=== PATIENT | male | born 1960 | race Caucasian/White ===

== ENCOUNTER 2021-02-22 20:34 | Inpatient (IN) ==
[2021-02-22] MEDS ORDERED: Ondansetron 4 MG/2 ML VIAL IVP PRN (22:37)
[2021-02-22] MEDS ORDERED: Naloxone 0.4 MG/ML INJ IVP PRN (22:37)
[2021-02-22] MEDS ORDERED: Ipratropium/Albuterol Neb 3 ML IH PRN (23:44)
[2021-02-23] MEDS: 0.9 % Sodium Chloride 1,000 ML IVC SCH ×2 (00:33→12:02)
[2021-02-23] MEDS: Cefepime HCl 2,000 MG in Water for inj. (sterile) 20 ML IVP SCH ×3 (00:34→15:49)
[2021-02-23 00:37] LABS: Adenovirus Not Detected (Not Detect); Bordetella Pertussis Not Detected (Not Detect); Chlamydophila pneumoniae Not Detected (Not Detect); Coronavirus 229E Not Detected (Not Detect); Coronavirus HKU1 Not Detected (Not Detect); Coronavirus NL63 Not Detected (Not Detect); Coronavirus OC43 Not Detected (Not Detect); Human Metapneumovirus Not Detected (Not Detect); Human Rhinovirus/Enterovirus Not Detected (Not Detect); Influenza A Subtype 2009 H1 Not Detected (Not Detect); Influenza B Not Detected (Not Detect); Mycoplasma pneumoniae Not Detected (Not Detect); Parainfluenza Virus 1 Not Detected (Not Detect); Parainfluenza Virus 2 Not Detected (Not Detect); Parainfluenza Virus 3 DETECTED (Not Detect); Parainfluenza Virus 4 Not Detected (Not Detect); Respiratory Syncytial Virus Not Detected (Not Detect); SARS-CoV-2 Not Detected (Not Detect)
[2021-02-23 01:38] LABS: Hematocrit 42.2 % (37.5-50.1); Hemoglobin 15.3 g/dL (12.9-16.9); Immature Platelets 5.4 % (1.1-6.1); Lymphocytes # 0.2 K/mcL (0.6-4.6); Lymphocytes % 58.6 %; Mean Corpuscular HGB Conc 36.3 g/dL (31.6-35.5); Mean Corpuscular Hemoglobin 32.7 pg (28.0-33.3); Mean Corpuscular Volume 90.2 fL (83.0-100.0); Mean Platelet Volume 10.8 fL (9.4-12.4); Monocytes % 10.3 %; Neutrophils # 0.1 K/mcL (1.6-8.9); Red Blood Count 4.68 M/mcL (4.19-5.50); Red Cell Distribution Width 15.9 % (11.5-14.5); Segmented Neutrophils % 31.1 %
[2021-02-23 01:42] LABS: INR 1.2; Prothrombin Time 13.8 Seconds (9.4-12.1)
[2021-02-23 01:46] LABS: Platelet Count 27 K/mcL (140-400); White Blood Count 0.3 K/mcL (4.3-11.1)
[2021-02-23] MEDS ORDERED: Isovue-370 500 ML BOTTLE IVP ONE (01:48)
[2021-02-23 01:58] LABS: Alanine Aminotransferase 95 Units/L (7-52); Albumin 3.3 g/dL (3.5-5.7); Albumin/Globulin Ratio 1.2 (1.1-2.2); Alkaline Phosphatase 102 Units/L (34-104); Aspartate Amino Transferase 32 Units/L (13-39); BUN/Creatinine Ratio 36 (6-26); Bilirubin,Total 1.8 mg/dL (0.3-1.0); Blood Urea Nitrogen 22 mg/dL (8-23); Calcium 8.5 mg/dL (8.6-10.3); Carbon Dioxide 22 mEq/L (23-29); Chloride 100 mEq/L (98-107); Globulin 2.7 g/dL (2.4-3.5); Glucose 84 mg/dL (70-105); Magnesium 1.5 mg/dL (1.6-2.6); Osmolality,Calculated 277 (280-300); Potassium 3.7 mEq/L (3.5-5.1); Sodium 132 mEq/L (136-145); eGFR For African Americans > 60 (> 60); eGFR For Non-African Americans > 60 (> 60)
[2021-02-23 02:01] LABS: Macrocytosis Present (Not Present); Platelet Estimate Marked Decrease (Normal)
[2021-02-23] MEDS: Acetaminophen 325 MG TABLET PO PRN (04:19)
[2021-02-23] MEDS ORDERED: *HR* Enoxaparin 40 MG/0.4 ML SYRINGE SQ SCH (09:00)
[2021-02-23] MEDS: Pantoprazole 40 MG VIAL IVP SCH (09:04)
[2021-02-23] MEDS: Famotidine 20 MG TABLET PO SCH (21:05)
[2021-02-23] MEDS: Nystatin SUSP 5 ML UD.LIQ PO SCH (21:06)
[2021-02-23] MEDS: dexAMETHasone 4 MG TABLET PO SCH (21:06)
[2021-02-24] MEDS: Cefepime HCl 2,000 MG in Water for inj. (sterile) 20 ML IVP SCH ×3 (00:24→16:30)
[2021-02-24] MEDS: Acetaminophen 325 MG TABLET PO PRN ×3 (00:24→13:37)
[2021-02-24 01:08] LABS: Mean Corpuscular HGB Conc 35.2 g/dL (31.6-35.5); Mean Corpuscular Hemoglobin 32.2 pg (28.0-33.3); Mean Corpuscular Volume 91.4 fL (83.0-100.0)
[2021-02-24 01:10] LABS: Basophils % 3.1 %; Hematocrit 34.9 % (37.5-50.1); Hemoglobin 12.3 g/dL (12.9-16.9); Immature Platelets 7.4 % (1.1-6.1); Lymphocytes # 0.1 K/mcL (0.6-4.6); Lymphocytes % 31.3 %; Mean Platelet Volume 10.8 fL (9.4-12.4); Monocytes % 9.4 %; Neutrophils # 0.2 K/mcL (1.6-8.9); Red Blood Count 3.82 M/mcL (4.19-5.50); Red Cell Distribution Width 15.4 % (11.5-14.5); Segmented Neutrophils % 56.2 %
[2021-02-24 01:28] LABS: BUN/Creatinine Ratio 36 (6-26); Blood Urea Nitrogen 18 mg/dL (8-23); Calcium 7.7 mg/dL (8.6-10.3); Carbon Dioxide 21 mEq/L (23-29); Chloride 103 mEq/L (98-107); Glucose 85 mg/dL (70-105); Osmolality,Calculated 273 (280-300); Potassium 3.9 mEq/L (3.5-5.1); Sodium 131 mEq/L (136-145); eGFR For African Americans > 60 (> 60); eGFR For Non-African Americans > 60 (> 60)
[2021-02-24 01:39] LABS: Platelet Count 16 K/mcL (140-400); White Blood Count 0.3 K/mcL (4.3-11.1)
[2021-02-24 01:41] LABS: Platelet Estimate Marked Decrease (Normal)
[2021-02-24] MEDS: Loratadine 10 MG TABLET PO SCH (07:40)
[2021-02-24] MEDS: dexAMETHasone 4 MG TABLET PO SCH ×2 (07:40→19:58)
[2021-02-24] MEDS: Famotidine 20 MG TABLET PO SCH ×3 (07:40→19:58)
[2021-02-24] MEDS: Nystatin SUSP 5 ML UD.LIQ PO SCH ×4 (07:41→19:58)
[2021-02-24] MEDS: Pantoprazole 40 MG VIAL IVP SCH (07:43)
[2021-02-24] MEDS: Magic Mouthwash 10 ML UD Cup PO PRN ×2 (07:43→13:38)
[2021-02-24 08:40] LABS: Red Blood Count 3.81 M/mcL (4.19-5.50); Red Cell Distribution Width 15.5 % (11.5-14.5)
[2021-02-24 08:41] LABS: Hematocrit 34.8 % (37.5-50.1); Hemoglobin 12.2 g/dL (12.9-16.9); Immature Platelets 9.7 % (1.1-6.1); Mean Corpuscular HGB Conc 35.1 g/dL (31.6-35.5); Mean Corpuscular Volume 91.3 fL (83.0-100.0); Mean Platelet Volume 11.6 fL (9.4-12.4)
[2021-02-24 08:44] LABS: White Blood Count 0.6 K/mcL (4.3-11.1)
[2021-02-24] MEDS: Nicotine 21 MG PATCH.TD24 TD SCH (12:35)
[2021-02-24] MEDS: Vancomycin 1,500 MG/265 ML IV.SOLN IVPB SCH (13:38)
[2021-02-24] MEDS ORDERED: Saline Nasal Spray 44 ML BOTTLE NS PRN (14:03)
[2021-02-24 17:08] LABS: Hematocrit 37.7 % (37.5-50.1); Hemoglobin 13.3 g/dL (12.9-16.9); Immature Platelets 12.1 % (1.1-6.1); Mean Corpuscular HGB Conc 35.3 g/dL (31.6-35.5); Mean Corpuscular Hemoglobin 32.7 pg (28.0-33.3); Mean Corpuscular Volume 92.6 fL (83.0-100.0); Mean Platelet Volume 13.1 fL (9.4-12.4); Red Blood Count 4.07 M/mcL (4.19-5.50); Red Cell Distribution Width 15.8 % (11.5-14.5); White Blood Count 1.2 K/mcL (4.3-11.1)
[2021-02-25] MEDS: Cefepime HCl 2,000 MG in Water for inj. (sterile) 20 ML IVP SCH ×2 (00:31→08:05)
[2021-02-25] MEDS: Vancomycin 1,500 MG/265 ML IV.SOLN IVPB SCH (00:31)
[2021-02-25] MEDS: Acetaminophen 325 MG TABLET PO PRN (00:40)
[2021-02-25 05:17] LABS: Hematocrit 35.1 % (37.5-50.1); Hemoglobin 12.2 g/dL (12.9-16.9); Lymphocytes # 0.2 K/mcL (0.6-4.6); Mean Corpuscular HGB Conc 34.8 g/dL (31.6-35.5); Mean Corpuscular Hemoglobin 31.7 pg (28.0-33.3); Mean Corpuscular Volume 91.2 fL (83.0-100.0); Mean Platelet Volume 11.7 fL (9.4-12.4); Monocytes # 0.1 K/mcL (0.0-1.3); Red Blood Count 3.85 M/mcL (4.19-5.50); Red Cell Distribution Width 15.1 % (11.5-14.5); White Blood Count 2.3 K/mcL (4.3-11.1)
[2021-02-25 05:22] LABS: Platelet Count 19 K/mcL (140-400)
[2021-02-25 05:35] LABS: Alanine Aminotransferase 52 Units/L (7-52); Albumin 2.8 g/dL (3.5-5.7); Albumin/Globulin Ratio 0.9 (1.1-2.2); Alkaline Phosphatase 87 Units/L (34-104); Aspartate Amino Transferase 24 Units/L (13-39); BUN/Creatinine Ratio 31 (6-26); Bilirubin,Total 0.9 mg/dL (0.3-1.0); Blood Urea Nitrogen 16 mg/dL (8-23); Calcium 8.2 mg/dL (8.6-10.3); Carbon Dioxide 23 mEq/L (23-29); Chloride 102 mEq/L (98-107); Glucose 162 mg/dL (70-105); Magnesium 1.6 mg/dL (1.6-2.6); Osmolality,Calculated 277 (280-300); Potassium 3.7 mEq/L (3.5-5.1); Sodium 131 mEq/L (136-145); Total Protein 5.8 g/dL (6.4-8.9); eGFR For African Americans > 60 (> 60); eGFR For Non-African Americans > 60 (> 60)
[2021-02-25 06:12] LABS: Platelet Estimate Marked Decrease (Normal)
[2021-02-25 07:31] VITALS: BP 146/88
[2021-02-25] MEDS: Pantoprazole 40 MG VIAL IVP SCH (08:06)
[2021-02-25] MEDS: Loratadine 10 MG TABLET PO SCH (08:06)
[2021-02-25] MEDS: dexAMETHasone 4 MG TABLET PO SCH (08:06)
[2021-02-25] MEDS: Nicotine 21 MG PATCH.TD24 TD SCH (08:06)
[2021-02-25] MEDS: Famotidine 20 MG TABLET PO SCH (08:06)
[2021-02-25] MEDS: Nystatin SUSP 5 ML UD.LIQ PO SCH (08:07)
== END 2021-02-25 10:30 | disposition home or self-care (01) | DRG 720 ==
LOC: 3NENU → SUATTDRO 22:16
PROVIDERS: ADMIT Student in an Organized Health Care Education/Training Program; ATTEND Family Medicine

== ENCOUNTER 2021-03-29 16:35 | Inpatient (IN) ==
[2021-03-29] MEDS ORDERED: Ondansetron 4 MG/2 ML VIAL IVP PRN (21:48)
[2021-03-29] MEDS ORDERED: Naloxone 0.4 MG/ML INJ IVP PRN (21:48)
[2021-03-29] MEDS ORDERED: *HR* Promethazine 25 MG/ML VIAL IM PRN (21:48)
[2021-03-29] MEDS: Ringers Solution, Lactated 1,000 ML IVC SCH (22:07)
[2021-03-29] MEDS: Melatonin 3 MG TABLET PO PRN (22:11)
[2021-03-30] MEDS ORDERED: Vancomycin 1,500 MG/265 ML IV.SOLN IVPB ONE
[2021-03-30] MEDS: Piperacillin/Tazobactam 3.375 GM in 0.9 % Sodium Chloride Mini Bag 100 ML IVPB SCH ×4 (00:28→23:21)
[2021-03-30] MEDS: Saliva Stimulant 44.3ml BOTTLE PO SCH ×5 (00:36→21:31)
[2021-03-30 02:01] LABS: Basophils # 0.1 K/mcL (0.0-0.2); Basophils % 0.4 %; Hematocrit 27.1 % (37.5-50.1); Hemoglobin 9.1 g/dL (12.9-16.9); Immature Granulocytes % 6.8 % (0-4); Lymphocytes # 0.9 K/mcL (0.6-4.6); Lymphocytes % 6.6 %; Mean Corpuscular HGB Conc 33.6 g/dL (31.6-35.5); Mean Corpuscular Volume 95.4 fL (83.0-100.0); Mean Platelet Volume 10.4 fL (9.4-12.4); Monocytes # 0.8 K/mcL (0.0-1.3); Monocytes % 5.7 %; Neutrophils # 11.5 K/mcL (1.6-8.9); Nucleated Red Blood Cells 0.4 /100 WBC (0); Platelet Count 281 K/mcL (140-400); Red Blood Count 2.84 M/mcL (4.19-5.50); Red Cell Distribution Width 16.7 % (11.5-14.5); Segmented Neutrophils % 80.5 %; White Blood Count 14.3 K/mcL (4.3-11.1)
[2021-03-30 02:07] LABS: INR 1.4; Prothrombin Time 16.2 Seconds (9.4-12.1)
[2021-03-30 02:20] LABS: Alanine Aminotransferase 45 Units/L (7-52); Albumin 2.1 g/dL (3.5-5.7); Albumin/Globulin Ratio 0.7 (1.1-2.2); Alkaline Phosphatase 160 Units/L (34-104); Aspartate Amino Transferase 41 Units/L (13-39); BUN/Creatinine Ratio 43 (6-26); Bilirubin,Total 0.5 mg/dL (0.3-1.0); Blood Urea Nitrogen 17 mg/dL (8-23); Calcium 7.6 mg/dL (8.6-10.3); Carbon Dioxide 26 mEq/L (23-29); Chloride 98 mEq/L (98-107); Chol/HDL Ratio 8.9 (0-4.9); Cholesterol 124 mg/dL (< 200); Globulin 3.1 g/dL (2.4-3.5); Glucose 211 mg/dL (70-105); HDL Cholesterol 14 mg/dL (40-59); LDL Cholesterol,Calculated 80 mg/dL (< 100); Magnesium 2.2 mg/dL (1.6-2.6); Osmolality,Calculated 282 (280-300); Potassium 3.4 mEq/L (3.5-5.1); Sodium 132 mEq/L (136-145); Total Protein 5.2 g/dL (6.4-8.9); Triglycerides 152 mg/dL (< 150); eGFR For African Americans > 60 (> 60); eGFR For Non-African Americans > 60 (> 60)
[2021-03-30 02:35] LABS: Polychromasia 1+ (Not Present)
[2021-03-30 02:36] LABS: Platelet Estimate Normal (Normal)
[2021-03-30] MEDS: *HR* Heparin 5,000 UNIT/ML VIAL SQ SCH ×3 (08:40→23:18)
[2021-03-30] MEDS: Ringers Solution, Lactated 1,000 ML IVC SCH (08:48)
[2021-03-30] MEDS ORDERED: *HR* Propofol 200 MG/20 ML VIAL IVP ONE (10:15)
[2021-03-30] MEDS ORDERED: Ondansetron 4 MG/2 ML VIAL ONE (10:17)
[2021-03-30] MEDS ORDERED: Lidocaine -MPF 2% 5 ML VIAL ONE (10:17)
[2021-03-30] MEDS ORDERED: *HR* Succinylcholine 200 MG/10 ML VIAL IVP ONE (10:23)
[2021-03-30] MEDS ORDERED: Lidocaine -MPF 4% 5 ML AMPUL ONE (10:35)
[2021-03-30] MEDS ORDERED: *HR* EPINEPHrine 1 MG/10 ML SYRINGE INTRATRACH PRN (11:01)
[2021-03-30] MEDS ORDERED: *HR* EPINEPHrine 1 MG/10 ML SYRINGE ONE (11:03)
[2021-03-30 12:35] LABS: Appearance of Body Fluid Clear (Clear); Volume of Body Fluid 21 mL
[2021-03-30] MEDS: Famotidine 20 MG TABLET PO SCH ×2 (12:45→23:19)
[2021-03-30] MEDS: Ipratropium/Albuterol Neb 3 ML IH SCH ×2 (15:58→22:42)
[2021-03-31 03:44] LABS: Hematocrit 27.1 % (37.5-50.1); Hemoglobin 9.1 g/dL (12.9-16.9); Mean Corpuscular HGB Conc 33.6 g/dL (31.6-35.5); Mean Corpuscular Hemoglobin 32.2 pg (28.0-33.3); Mean Corpuscular Volume 95.8 fL (83.0-100.0); Mean Platelet Volume 10.3 fL (9.4-12.4); Nucleated Red Blood Cells 0.4 /100 WBC (0); Platelet Count 274 K/mcL (140-400); Red Blood Count 2.83 M/mcL (4.19-5.50); Red Cell Distribution Width 16.6 % (11.5-14.5); White Blood Count 14.4 K/mcL (4.3-11.1)
[2021-03-31 04:01] LABS: Magnesium 1.8 mg/dL (1.6-2.6); Phosphorous 2.4 mg/dL (2.7-4.5)
[2021-03-31 04:02] LABS: Alanine Aminotransferase 67 Units/L (7-52); Albumin 2.2 g/dL (3.5-5.7); Albumin/Globulin Ratio 0.8 (1.1-2.2); Alkaline Phosphatase 198 Units/L (34-104); Aspartate Amino Transferase 48 Units/L (13-39); BUN/Creatinine Ratio 23 (6-26); Bilirubin,Total 0.5 mg/dL (0.3-1.0); Blood Urea Nitrogen 10 mg/dL (8-23); Calcium 7.4 mg/dL (8.6-10.3); Carbon Dioxide 24 mEq/L (23-29); Chloride 101 mEq/L (98-107); Globulin 2.9 g/dL (2.4-3.5); Glucose 311 mg/dL (70-105); Osmolality,Calculated 285 (280-300); Sodium 132 mEq/L (136-145); Total Protein 5.1 g/dL (6.4-8.9); eGFR For African Americans > 60 (> 60); eGFR For Non-African Americans > 60 (> 60)
[2021-03-31] MEDS: Ipratropium/Albuterol Neb 3 ML IH SCH ×4 (04:03→22:57)
[2021-03-31 04:36] LABS: Lymphocytes # 0.9 K/mcL (0.6-4.6); Monocytes # 0.9 K/mcL (0.0-1.3); Neutrophils # 12.4 K/mcL (1.6-8.9); Platelet Estimate Normal (Normal)
[2021-03-31] MEDS: *HR* Heparin 5,000 UNIT/ML VIAL SQ SCH ×3 (06:29→21:20)
[2021-03-31] MEDS: Saliva Stimulant 44.3ml BOTTLE PO SCH ×4 (08:17→21:26)
[2021-03-31] MEDS: Piperacillin/Tazobactam 3.375 GM in 0.9 % Sodium Chloride Mini Bag 100 ML IVPB SCH ×3 (08:17→23:44)
[2021-03-31] MEDS: Famotidine 20 MG TABLET PO SCH ×2 (08:48→21:20)
[2021-03-31] MEDS ORDERED: dexAMETHasone 4 MG TABLET PO SCH (09:00)
[2021-03-31] MEDS: Melatonin 3 MG TABLET PO PRN (21:20)
[2021-04-01 03:36] LABS: Hematocrit 31.6 % (37.5-50.1); Hemoglobin 10.4 g/dL (12.9-16.9); Mean Corpuscular HGB Conc 32.9 g/dL (31.6-35.5); Mean Corpuscular Hemoglobin 31.6 pg (28.0-33.3); Mean Platelet Volume 9.9 fL (9.4-12.4); Platelet Count 329 K/mcL (140-400); Red Blood Count 3.29 M/mcL (4.19-5.50); Red Cell Distribution Width 16.9 % (11.5-14.5); White Blood Count 19.4 K/mcL (4.3-11.1)
[2021-04-01 03:57] LABS: BUN/Creatinine Ratio 17 (6-26); Blood Urea Nitrogen 8 mg/dL (8-23); Calcium 8.3 mg/dL (8.6-10.3); Carbon Dioxide 25 mEq/L (23-29); Chloride 99 mEq/L (98-107); Glucose 130 mg/dL (70-105); Osmolality,Calculated 276 (280-300); Potassium 3.9 mEq/L (3.5-5.1); Sodium 133 mEq/L (136-145); eGFR For African Americans > 60 (> 60); eGFR For Non-African Americans > 60 (> 60)
[2021-04-01] MEDS: Ipratropium/Albuterol Neb 3 ML IH SCH ×4 (04:00→22:16)
[2021-04-01] MEDS: *HR* Heparin 5,000 UNIT/ML VIAL SQ SCH ×2 (05:23→20:44)
[2021-04-01] MEDS: Famotidine 20 MG TABLET PO SCH ×2 (08:16→20:42)
[2021-04-01] MEDS: Piperacillin/Tazobactam 3.375 GM in 0.9 % Sodium Chloride Mini Bag 100 ML IVPB SCH (08:17)
[2021-04-01] MEDS: Saliva Stimulant 44.3ml BOTTLE PO SCH (08:18)
[2021-04-01] MEDS ORDERED: dexAMETHasone 4 MG TABLET PO SCH (09:00)
[2021-04-01] MEDS ORDERED: *HR* Rocuronium Bromide 50 MG/5 ML VIAL ONE ×3 (11:08→15:09)
[2021-04-01] MEDS ORDERED: Ondansetron 4 MG/2 ML VIAL ONE (11:08)
[2021-04-01] MEDS ORDERED: *HR* FentaNYL (PF) 100 MCG/2 ML VIAL ONE ×3 (11:08→14:46)
[2021-04-01] MEDS ORDERED: *HR* Succinylcholine 200 MG/10 ML VIAL IVP ONE ×2 (11:08→13:22)
[2021-04-01] MEDS ORDERED: Lidocaine HCL 4 ML Topical Solution (Laryng-O-Jet Kit Sterile Pak) TP ONE ×2 (11:08→13:22)
[2021-04-01] MEDS ORDERED: Lidocaine -MPF 2% 2 ML VIAL ONE ×2 (11:08→13:22)
[2021-04-01] MEDS ORDERED: *HR* Propofol 200 MG/20 ML VIAL IVP ONE ×2 (11:09→13:23)
[2021-04-01] MEDS ORDERED: *HR* Midazolam HCl 2 MG/2 ML VIAL ONE ×2 (11:09→13:23)
[2021-04-01] MEDS ORDERED: *HR* Phenylephrine 10 MG/ML VIAL ONE (14:18)
[2021-04-01] MEDS ORDERED: Melatonin 3 MG TABLET PO PRN (16:37)
[2021-04-01] MEDS ORDERED: Naloxone 0.4 MG/ML INJ IVP PRN (16:37)
[2021-04-01] MEDS ORDERED: *HR* HYDROcodone/Acet 5/325 mg TABLET PO PRN (16:37)
[2021-04-01] MEDS ORDERED: Ondansetron 4 MG/2 ML VIAL IVP PRN (16:37)
[2021-04-01] MEDS: Ketorolac 15 MG/ML VIAL IVP SCH ×2 (17:21→23:28)
[2021-04-01] MEDS: 0.9 % Sodium Chloride 1,000 ML IVC SCH (17:23)
[2021-04-01] MEDS: Gabapentin 300 MG CAPSULE PO SCH (20:43)
[2021-04-01] MEDS: Sennosides/Docusate Sodium TABLET PO SCH (20:43)
[2021-04-02] MEDS: Ipratropium/Albuterol Neb 3 ML IH SCH ×4 (03:49→21:59)
[2021-04-02] MEDS: Ketorolac 15 MG/ML VIAL IVP SCH ×4 (05:28→23:05)
[2021-04-02] MEDS: *HR* Heparin 5,000 UNIT/ML VIAL SQ SCH ×3 (05:29→20:27)
[2021-04-02] MEDS: Gabapentin 300 MG CAPSULE PO SCH ×3 (07:59→20:27)
[2021-04-02] MEDS: dexAMETHasone 4 MG TABLET PO SCH (07:59)
[2021-04-02] MEDS: Famotidine 20 MG TABLET PO SCH ×2 (07:59→20:27)
[2021-04-02] MEDS: Sennosides/Docusate Sodium TABLET PO SCH ×2 (07:59→20:27)
[2021-04-02] MEDS: 0.9 % Sodium Chloride 1,000 ML IVC SCH (09:32)
[2021-04-02 12:44] LABS: Basophils % 0.2 %; Hematocrit 31.9 % (37.5-50.1); Hemoglobin 10.8 g/dL (12.9-16.9); Immature Granulocytes % 5.5 % (0-4); Lymphocytes # 0.4 K/mcL (0.6-4.6); Mean Corpuscular HGB Conc 33.9 g/dL (31.6-35.5); Mean Corpuscular Hemoglobin 32.5 pg (28.0-33.3); Mean Corpuscular Volume 96.1 fL (83.0-100.0); Mean Platelet Volume 10.1 fL (9.4-12.4); Monocytes # 0.4 K/mcL (0.0-1.3); Nucleated Red Blood Cells 0.1 /100 WBC (0); Platelet Count 287 K/mcL (140-400); Red Blood Count 3.32 M/mcL (4.19-5.50); Red Cell Distribution Width 17.2 % (11.5-14.5); Segmented Neutrophils % 90.3 %
[2021-04-02 13:03] LABS: BUN/Creatinine Ratio 26 (6-26); Blood Urea Nitrogen 14 mg/dL (8-23); Calcium 7.9 mg/dL (8.6-10.3); Carbon Dioxide 25 mEq/L (23-29); Chloride 96 mEq/L (98-107); Glucose 275 mg/dL (70-105); Osmolality,Calculated 278 (280-300); Potassium 3.8 mEq/L (3.5-5.1); Sodium 129 mEq/L (136-145); eGFR For African Americans > 60 (> 60); eGFR For Non-African Americans > 60 (> 60)
[2021-04-02 13:35] LABS: Platelet Estimate Normal (Normal); Toxic Granulation Present (Not Present)
[2021-04-03] MEDS: 0.9 % Sodium Chloride 1,000 ML IVC SCH (01:26)
[2021-04-03] MEDS: Ipratropium/Albuterol Neb 3 ML IH SCH ×4 (03:53→22:39)
[2021-04-03] MEDS ORDERED: 0.9 % Sodium Chloride 250 ML ONE (04:21)
[2021-04-03 05:17] LABS: Basophils # 0.1 K/mcL (0.0-0.2); Basophils % 0.5 %; Hematocrit 29.7 % (37.5-50.1); Hemoglobin 9.3 g/dL (12.9-16.9); Immature Granulocytes % 8.3 % (0-4); Lymphocytes # 0.8 K/mcL (0.6-4.6); Lymphocytes % 4.9 %; Mean Corpuscular HGB Conc 31.3 g/dL (31.6-35.5); Mean Corpuscular Hemoglobin 31.2 pg (28.0-33.3); Mean Corpuscular Volume 99.7 fL (83.0-100.0); Mean Platelet Volume 10.2 fL (9.4-12.4); Monocytes # 0.5 K/mcL (0.0-1.3); Monocytes % 3.2 %; Neutrophils # 12.8 K/mcL (1.6-8.9); Nucleated Red Blood Cells 0.2 /100 WBC (0); Platelet Count 247 K/mcL (140-400); Red Blood Count 2.98 M/mcL (4.19-5.50); Red Cell Distribution Width 17.5 % (11.5-14.5); Segmented Neutrophils % 83.1 %; White Blood Count 15.4 K/mcL (4.3-11.1)
[2021-04-03 05:38] LABS: Alanine Aminotransferase 31 Units/L (7-52); Albumin 2.2 g/dL (3.5-5.7); Albumin/Globulin Ratio 0.8 (1.1-2.2); Alkaline Phosphatase 167 Units/L (34-104); Aspartate Amino Transferase 11 Units/L (13-39); BUN/Creatinine Ratio 23 (6-26); Bilirubin,Total 0.3 mg/dL (0.3-1.0); Blood Urea Nitrogen 12 mg/dL (8-23); Calcium 7.5 mg/dL (8.6-10.3); Carbon Dioxide 25 mEq/L (23-29); Chloride 104 mEq/L (98-107); Globulin 2.7 g/dL (2.4-3.5); Glucose 450 mg/dL (70-105); Osmolality,Calculated 299 (280-300); Potassium 3.8 mEq/L (3.5-5.1); Sodium 135 mEq/L (136-145); Total Protein 4.9 g/dL (6.4-8.9); eGFR For African Americans > 60 (> 60); eGFR For Non-African Americans > 60 (> 60)
[2021-04-03] MEDS: *HR* Heparin 5,000 UNIT/ML VIAL SQ SCH ×3 (06:04→19:56)
[2021-04-03] MEDS: Ketorolac 15 MG/ML VIAL IVP SCH ×4 (06:10→23:17)
[2021-04-03] MEDS: Gabapentin 300 MG CAPSULE PO SCH ×3 (08:02→19:51)
[2021-04-03] MEDS: dexAMETHasone 4 MG TABLET PO SCH (08:02)
[2021-04-03] MEDS: Sennosides/Docusate Sodium TABLET PO SCH ×2 (08:02→19:52)
[2021-04-03] MEDS: Famotidine 20 MG TABLET PO SCH ×2 (08:02→19:51)
[2021-04-03] MEDS ORDERED: D5% in Water 1,000 ML IVC PRN (12:57)
[2021-04-03] MEDS ORDERED: *HR* Dextrose 50 % in Water (Vial) 50 ML VIAL IVP PRN (12:57)
[2021-04-03] MEDS ORDERED: Dextrose Gel 15 GM/37.5 ML TUBE PO PRN ×2 (12:57)
[2021-04-03] MEDS: Insulin LISPRO 300 UNITS/3 ML VIAL SUBQ SCH (16:20)
[2021-04-04 03:03] LABS: Basophils # 0.1 K/mcL (0.0-0.2); Basophils % 0.3 %; Hematocrit 28.8 % (37.5-50.1); Hemoglobin 9.3 g/dL (12.9-16.9); Immature Granulocytes % 6.3 % (0-4); Lymphocytes # 0.8 K/mcL (0.6-4.6); Mean Corpuscular HGB Conc 32.3 g/dL (31.6-35.5); Mean Corpuscular Hemoglobin 31.7 pg (28.0-33.3); Mean Corpuscular Volume 98.3 fL (83.0-100.0); Mean Platelet Volume 10.1 fL (9.4-12.4); Monocytes # 0.5 K/mcL (0.0-1.3); Monocytes % 2.6 %; Neutrophils # 17.5 K/mcL (1.6-8.9); Nucleated Red Blood Cells 0.4 /100 WBC (0); Platelet Count 251 K/mcL (140-400); Red Blood Count 2.93 M/mcL (4.19-5.50); Red Cell Distribution Width 17.9 % (11.5-14.5); Segmented Neutrophils % 86.8 %; White Blood Count 20.2 K/mcL (4.3-11.1)
[2021-04-04 03:25] LABS: BUN/Creatinine Ratio 31 (6-26); Blood Urea Nitrogen 12 mg/dL (8-23); Calcium 7.8 mg/dL (8.6-10.3); Carbon Dioxide 22 mEq/L (23-29); Chloride 105 mEq/L (98-107); Glucose 229 mg/dL (70-105); Osmolality,Calculated 285 (280-300); Potassium 4.1 mEq/L (3.5-5.1); Sodium 134 mEq/L (136-145); eGFR For African Americans > 60 (> 60); eGFR For Non-African Americans > 60 (> 60)
[2021-04-04 03:53] LABS: Anisocytosis 1+ (Not Present); Hypochromasia Present (Not Present); Platelet Estimate Normal (Normal); Polychromasia 1+ (Not Present)
[2021-04-04] MEDS: Ipratropium/Albuterol Neb 3 ML IH SCH ×4 (03:59→21:53)
[2021-04-04] MEDS: Ketorolac 15 MG/ML VIAL IVP SCH ×4 (05:20→23:46)
[2021-04-04] MEDS: *HR* Heparin 5,000 UNIT/ML VIAL SQ SCH ×3 (05:20→20:18)
[2021-04-04] MEDS: Sennosides/Docusate Sodium TABLET PO SCH ×2 (07:48→20:17)
[2021-04-04] MEDS: Famotidine 20 MG TABLET PO SCH ×2 (07:49→20:17)
[2021-04-04] MEDS: Gabapentin 300 MG CAPSULE PO SCH ×3 (07:49→20:15)
[2021-04-04] MEDS: dexAMETHasone 4 MG TABLET PO SCH (07:49)
[2021-04-04] MEDS: Insulin LISPRO 300 UNITS/3 ML VIAL SUBQ SCH ×3 (07:50→16:19)
[2021-04-05] MEDS: Ipratropium/Albuterol Neb 3 ML IH SCH ×4 (03:53→22:10)
[2021-04-05] MEDS: *HR* Heparin 5,000 UNIT/ML VIAL SQ SCH ×3 (05:12→21:40)
[2021-04-05] MEDS: Ketorolac 15 MG/ML VIAL IVP SCH ×3 (05:13→19:52)
[2021-04-05 06:24] LABS: Basophils # 0.1 K/mcL (0.0-0.2); Basophils % 0.3 %; Hematocrit 29.5 % (37.5-50.1); Immature Granulocytes % 5.6 % (0-4); Lymphocytes % 4.5 %; Mean Corpuscular HGB Conc 33.9 g/dL (31.6-35.5); Mean Corpuscular Hemoglobin 32.3 pg (28.0-33.3); Mean Corpuscular Volume 95.2 fL (83.0-100.0); Mean Platelet Volume 9.9 fL (9.4-12.4); Monocytes # 0.6 K/mcL (0.0-1.3); Monocytes % 2.6 %; Nucleated Red Blood Cells 0.3 /100 WBC (0); Platelet Count 239 K/mcL (140-400); Red Cell Distribution Width 17.5 % (11.5-14.5); White Blood Count 21.2 K/mcL (4.3-11.1)
[2021-04-05 06:34] LABS: Neutrophils # 18.4 K/mcL (1.6-8.9)
[2021-04-05 06:47] LABS: Alanine Aminotransferase 32 Units/L (7-52); Albumin 2.2 g/dL (3.5-5.7); Albumin/Globulin Ratio 0.7 (1.1-2.2); Alkaline Phosphatase 184 Units/L (34-104); Aspartate Amino Transferase 17 Units/L (13-39); BUN/Creatinine Ratio 29 (6-26); Bilirubin,Total 0.6 mg/dL (0.3-1.0); Blood Urea Nitrogen 12 mg/dL (8-23); Calcium 7.9 mg/dL (8.6-10.3); Carbon Dioxide 24 mEq/L (23-29); Chloride 102 mEq/L (98-107); Glucose 132 mg/dL (70-105); Osmolality,Calculated 276 (280-300); Sodium 132 mEq/L (136-145); Total Protein 5.2 g/dL (6.4-8.9); eGFR For African Americans > 60 (> 60); eGFR For Non-African Americans > 60 (> 60)
[2021-04-05 06:48] LABS: Anisocytosis 1+ (Not Present); Platelet Estimate Normal (Normal); Poikilocytosis 1+ (Not Present)
[2021-04-05] MEDS: Famotidine 20 MG TABLET PO SCH ×2 (07:34→19:52)
[2021-04-05] MEDS: Sennosides/Docusate Sodium TABLET PO SCH ×2 (07:34→19:52)
[2021-04-05] MEDS: dexAMETHasone 4 MG TABLET PO SCH (07:34)
[2021-04-05] MEDS: Gabapentin 300 MG CAPSULE PO SCH ×3 (07:34→19:52)
[2021-04-05] MEDS: Insulin LISPRO 300 UNITS/3 ML VIAL SUBQ SCH ×3 (07:34→17:04)
[2021-04-05] MEDS: 0.9 % Sodium Chloride 1,000 ML IVC SCH (23:59)
[2021-04-06 01:22] LABS: Hematocrit 29.1 % (37.5-50.1); Hemoglobin 9.4 g/dL (12.9-16.9); Mean Corpuscular HGB Conc 32.3 g/dL (31.6-35.5); Mean Platelet Volume 10.1 fL (9.4-12.4); Platelet Count 231 K/mcL (140-400); Red Blood Count 3.03 M/mcL (4.19-5.50); Red Cell Distribution Width 17.7 % (11.5-14.5); White Blood Count 19.7 K/mcL (4.3-11.1)
[2021-04-06 01:36] LABS: BUN/Creatinine Ratio 36 (6-26); Blood Urea Nitrogen 17 mg/dL (8-23); Calcium 7.7 mg/dL (8.6-10.3); Carbon Dioxide 22 mEq/L (23-29); Chloride 102 mEq/L (98-107); Glucose 324 mg/dL (70-105); Osmolality,Calculated 290 (280-300); Potassium 3.5 mEq/L (3.5-5.1); Sodium 133 mEq/L (136-145); eGFR For African Americans > 60 (> 60); eGFR For Non-African Americans > 60 (> 60)
[2021-04-06] MEDS: Ipratropium/Albuterol Neb 3 ML IH SCH (03:58)
[2021-04-06] MEDS: *HR* Heparin 5,000 UNIT/ML VIAL SQ SCH ×3 (05:35→20:59)
[2021-04-06] MEDS: Ketorolac 15 MG/ML VIAL IVP SCH ×4 (05:35→16:50)
[2021-04-06] MEDS: Famotidine 20 MG TABLET PO SCH ×2 (08:31→20:58)
[2021-04-06] MEDS: Sennosides/Docusate Sodium TABLET PO SCH ×2 (08:31→20:58)
[2021-04-06] MEDS: Gabapentin 300 MG CAPSULE PO SCH ×3 (08:31→20:58)
[2021-04-06] MEDS: dexAMETHasone 4 MG TABLET PO SCH (08:31)
[2021-04-06] MEDS: Insulin LISPRO 300 UNITS/3 ML VIAL SUBQ SCH ×3 (08:32→16:50)
[2021-04-06 08:46] LABS: VBG Ionized Calcium 1.18 mmol/L (1.15-1.35)
[2021-04-06 11:11] LABS: Estimated Average Glucose 203 mg/dl; Hemoglobin A1C 8.7 %
[2021-04-06] MEDS: Nicotine 21 MG PATCH.TD24 TD SCH (13:18)
[2021-04-06] MEDS: Insulin DETEMIR 100 UNIT/ML X5UNITS SUBQ SCH (20:59)
[2021-04-07 02:51] LABS: Hematocrit 30.8 % (37.5-50.1); Hemoglobin 9.8 g/dL (12.9-16.9); Mean Corpuscular HGB Conc 31.8 g/dL (31.6-35.5); Mean Corpuscular Hemoglobin 31.4 pg (28.0-33.3); Mean Corpuscular Volume 98.7 fL (83.0-100.0); Mean Platelet Volume 9.8 fL (9.4-12.4); Platelet Count 232 K/mcL (140-400); Red Blood Count 3.12 M/mcL (4.19-5.50); Red Cell Distribution Width 18.3 % (11.5-14.5); White Blood Count 14.8 K/mcL (4.3-11.1)
[2021-04-07 03:16] LABS: BUN/Creatinine Ratio 30 (6-26); Blood Urea Nitrogen 14 mg/dL (8-23); Carbon Dioxide 22 mEq/L (23-29); Chloride 104 mEq/L (98-107); Glucose 342 mg/dL (70-105); Osmolality,Calculated 288 (280-300); Sodium 132 mEq/L (136-145); eGFR For African Americans > 60 (> 60); eGFR For Non-African Americans > 60 (> 60)
[2021-04-07] MEDS: *HR* Heparin 5,000 UNIT/ML VIAL SQ SCH ×3 (05:46→21:41)
[2021-04-07] MEDS: Famotidine 20 MG TABLET PO SCH ×2 (08:44→21:41)
[2021-04-07] MEDS: Insulin LISPRO 300 UNITS/3 ML VIAL SUBQ SCH ×3 (08:45→17:32)
[2021-04-07] MEDS: dexAMETHasone 4 MG TABLET PO SCH (08:45)
[2021-04-07] MEDS: Gabapentin 300 MG CAPSULE PO SCH ×3 (08:45→21:41)
[2021-04-07] MEDS: Sennosides/Docusate Sodium TABLET PO SCH ×2 (08:45→21:41)
[2021-04-07] MEDS: Nicotine 21 MG PATCH.TD24 TD SCH (08:45)
[2021-04-07] MEDS: Vancomycin 1,500 MG/265 ML IV.SOLN IVPB SCH (21:40)
[2021-04-07] MEDS: Insulin DETEMIR 100 UNIT/ML X5UNITS SUBQ SCH (21:42)
[2021-04-08] MEDS: *HR* Heparin 5,000 UNIT/ML VIAL SQ SCH ×3 (04:44→22:02)
[2021-04-08 05:18] LABS: Hematocrit 31.3 % (37.5-50.1); Mean Corpuscular HGB Conc 31.9 g/dL (31.6-35.5); Mean Corpuscular Hemoglobin 31.2 pg (28.0-33.3); Mean Corpuscular Volume 97.5 fL (83.0-100.0); Mean Platelet Volume 9.5 fL (9.4-12.4); Platelet Count 228 K/mcL (140-400); Red Blood Count 3.21 M/mcL (4.19-5.50); Red Cell Distribution Width 17.7 % (11.5-14.5); White Blood Count 14.7 K/mcL (4.3-11.1)
[2021-04-08 05:38] LABS: BUN/Creatinine Ratio 41 (6-26); Blood Urea Nitrogen 19 mg/dL (8-23); Calcium 8.2 mg/dL (8.6-10.3); Carbon Dioxide 24 mEq/L (23-29); Chloride 102 mEq/L (98-107); Glucose 80 mg/dL (70-105); Osmolality,Calculated 279 (280-300); Potassium 3.9 mEq/L (3.5-5.1); Sodium 134 mEq/L (136-145); eGFR For African Americans > 60 (> 60); eGFR For Non-African Americans > 60 (> 60)
[2021-04-08] MEDS: Insulin LISPRO 300 UNITS/3 ML VIAL SUBQ SCH ×3 (08:11→16:58)
[2021-04-08] MEDS: Gabapentin 300 MG CAPSULE PO SCH ×3 (09:43→21:35)
[2021-04-08] MEDS: Famotidine 20 MG TABLET PO SCH ×2 (09:43→21:35)
[2021-04-08] MEDS: dexAMETHasone 4 MG TABLET PO SCH (09:43)
[2021-04-08] MEDS: Nicotine 21 MG PATCH.TD24 TD SCH (09:43)
[2021-04-08] MEDS: Sennosides/Docusate Sodium TABLET PO SCH ×2 (09:43→21:34)
[2021-04-08] MEDS: Vancomycin 1,500 MG/265 ML IV.SOLN IVPB SCH ×2 (09:44→21:12)
[2021-04-08] MEDS: Acetaminophen 325 MG TABLET PO PRN (09:51)
[2021-04-08] MEDS: Insulin DETEMIR 100 UNIT/ML X5UNITS SUBQ SCH (21:35)
[2021-04-08] MEDS: Vancomycin 1,750 MG/517.5 ML IV.SOLN IVPB SCH (21:37)
[2021-04-09 00:03] VITALS: PULSE 90; O2SAT 94
[2021-04-09] MEDS: Acetaminophen 325 MG TABLET PO PRN (00:09)
[2021-04-09] MEDS: *HR* Heparin 5,000 UNIT/ML VIAL SQ SCH (06:06)
[2021-04-09 07:10] VITALS: BP 122/84; TEMP 97.7
[2021-04-09] MEDS: Vancomycin 1,750 MG/517.5 ML IV.SOLN IVPB SCH (08:23)
[2021-04-09] MEDS: Sennosides/Docusate Sodium TABLET PO SCH (08:26)
[2021-04-09] MEDS: dexAMETHasone 4 MG TABLET PO SCH (08:26)
[2021-04-09] MEDS: Gabapentin 300 MG CAPSULE PO SCH (08:26)
[2021-04-09] MEDS: Famotidine 20 MG TABLET PO SCH (08:26)
[2021-04-09] MEDS: Nicotine 21 MG PATCH.TD24 TD SCH (08:28)
[2021-04-09] MEDS: Insulin LISPRO 300 UNITS/3 ML VIAL SUBQ SCH (08:29)
== END 2021-04-09 12:51 | disposition home or self-care (01) | DRG 710 ==
LOC: 2ANU → SUATTDRO 18:45 → ICNU 04-01 12:55 → 2NNU 04-03 18:00 → CDU 04-07 11:20 → 3BNU 04-07 16:42
PROVIDERS: ADMIT Pharmacist; ATTEND Family Medicine

== ENCOUNTER 2021-05-30 00:24 | Inpatient (IN) ==
[2021-05-30] MEDS ORDERED: Ipratropium/Albuterol Neb 3 ML IH ONE (00:35)
[2021-05-30] MEDS ORDERED: methylPREDNISolone 125 MG/2 ML VIAL IVP ONE (00:35)
[2021-05-30] MEDS ORDERED: Isovue-370 500 ML BOTTLE IVP ONE (00:51)
[2021-05-30 01:05] LABS: Basophils % 0.1 %; Hematocrit 39.8 % (37.5-50.1); Hemoglobin 12.9 g/dL (12.9-16.9); Immature Granulocytes % 1.7 % (0-4); Lymphocytes # 0.7 K/mcL (0.6-4.6); Lymphocytes % 5.3 %; Mean Corpuscular HGB Conc 32.4 g/dL (31.6-35.5); Mean Corpuscular Hemoglobin 29.9 pg (28.0-33.3); Mean Corpuscular Volume 92.3 fL (83.0-100.0); Mean Platelet Volume 9.8 fL (9.4-12.4); Monocytes # 0.5 K/mcL (0.0-1.3); Monocytes % 3.3 %; Platelet Count 139 K/mcL (140-400); Red Blood Count 4.31 M/mcL (4.19-5.50); Red Cell Distribution Width 16.5 % (11.5-14.5); Segmented Neutrophils % 89.6 %; White Blood Count 13.9 K/mcL (4.3-11.1)
[2021-05-30 01:13] LABS: INR 1.4; Prothrombin Time 15.5 Seconds (9.4-12.1)
[2021-05-30 01:15] LABS: Neutrophils # 12.5 K/mcL (1.6-8.9)
[2021-05-30 01:35] LABS: Alanine Aminotransferase 23 Units/L (7-52); Albumin 3.5 g/dL (3.5-5.7); Alkaline Phosphatase 176 Units/L (34-104); Aspartate Amino Transferase 16 Units/L (13-39); BUN/Creatinine Ratio 17 (6-26); Bilirubin,Direct 0.1 mg/dL (0.0-0.2); Bilirubin,Indirect 0.3 mg/dL (0.0-1.0); Bilirubin,Total 0.4 mg/dL (0.3-1.0); Blood Urea Nitrogen 13 mg/dL (8-23); Calcium 8.8 mg/dL (8.6-10.3); Carbon Dioxide 19 mEq/L (23-29); Chloride 102 mEq/L (98-107); Globulin 3.6 g/dL (2.4-3.5); Glucose 141 mg/dL (70-105); Magnesium 1.6 mg/dL (1.6-2.6); Osmolality,Calculated 280 (280-300); Potassium 4.2 mEq/L (3.5-5.1); Sodium 134 mEq/L (136-145); Total Protein 7.1 g/dL (6.4-8.9); eGFR For African Americans > 60 (> 60); eGFR For Non-African Americans > 60 (> 60)
[2021-05-30 01:36] LABS: VBG HCO3 21 mEq/L (21-27); VBG PCO2 32 mmHg (41-51); VBG PH 7.42 pH Units (7.32-7.42); VBG PO2 72 mmHg (25-50)
[2021-05-30] MEDS ORDERED: Vancomycin 1,500 MG/265 ML IV.SOLN IVPB ONE ×2 (01:37→10:00)
[2021-05-30] MEDS ORDERED: Piperacillin/Tazobactam 3.375 GM in 0.9 % Sodium Chloride Mini Bag 100 ML IVPB ONE (01:38)
[2021-05-30] MEDS ORDERED: Azithromycin 500 MG in 0.9 % Sodium Chloride 250 ML IVPB ONE (01:38)
[2021-05-30 01:47] LABS: Anisocytosis 1+ (Not Present); Platelet Estimate Normal (Normal)
[2021-05-30 02:18] LABS: Influenza A PCR Negative (Negative); Influenza B PCR Negative (Negative); Resp. Syncytial Virus PCR Negative (Negative)
[2021-05-30 02:20] LABS: SARS-CoV-2 by PCR (In House) Negative (Negative)
[2021-05-30] MEDS ORDERED: 0.9 % Sodium Chloride 1,000 ML IVC ONE (03:25)
[2021-05-30] MEDS ORDERED: Naloxone 0.4 MG/ML INJ IVP PRN (04:41)
[2021-05-30] MEDS ORDERED: Dextrose Gel 15 GM/37.5 ML TUBE PO PRN ×2 (04:41)
[2021-05-30] MEDS ORDERED: Ondansetron ODT 4 MG TAB.RAPDIS SL PRN (04:41)
[2021-05-30] MEDS ORDERED: Melatonin 3 MG TABLET PO PRN (04:41)
[2021-05-30] MEDS ORDERED: D5% in Water 1,000 ML IVC PRN (04:41)
[2021-05-30] MEDS ORDERED: *HR* Dextrose 50 % in Water (Syg) 50 ML SYRINGE IVP PRN (04:41)
[2021-05-30] MEDS ORDERED: Acetaminophen 325 MG TABLET PO PRN (05:18)
[2021-05-30 05:23] LABS: INR 1.4; Prothrombin Time 15.2 Seconds (9.4-12.1)
[2021-05-30] MEDS: 0.9 % Sodium Chloride 1,000 ML IVC SCH ×2 (05:23→11:27)
[2021-05-30 05:26] LABS: Activated Partial Thrombo Time 34.6 Seconds (26.0-36.0)
[2021-05-30] MEDS ORDERED: Ipratropium/Albuterol Neb 3 ML IH PRN (05:29)
[2021-05-30 05:38] LABS: Troponin I 0.26 ng/mL (< 0.04)
[2021-05-30] MEDS ORDERED: Perflutren Lipid Microsphere 1.3 ML in 0.9 % Sodium Chloride 8.7 ML IVP PRN (06:25)
[2021-05-30] MEDS ORDERED: *HR* Heparin 5,000 UNIT/ML VIAL IVP PRN ×2 (06:26)
[2021-05-30] MEDS ORDERED: *HR* Heparin 5,000 UNIT/ML VIAL IVP ONE (06:26)
[2021-05-30] MEDS ORDERED: Heparin 25,000UNIT/250ML 1/2NS 25,000 UNIT/250 ML IV.SOLN IVC SCH (06:30)
[2021-05-30 06:49] LABS: Heparin anti-factor XA UFH 0.17 IU/mL (0.30-0.70)
[2021-05-30 08:55] LABS: Bilirubin,Urine Negative (Negative); Blood,Urine Negative (Negative); Clarity,Urine Clear (Clear); Color,Urine Light-Yellow (Yellow); Glucose,Urine (UA) Normal (Normal); Ketones,Urine Negative (Negative); Leukocyte Esterase,Urine Negative (Negative); Nitrite,Urine Negative (Negative); Protein,Urine Negative (Neg-Trace); Specific Gravity,Urine > 1.030 (1.010-1.025); Urobilinogen,Urine Normal (Normal)
[2021-05-30] MEDS: Insulin LISPRO 300 UNITS/3 ML VIAL SUBQ SCH ×3 (09:15→16:57)
[2021-05-30] MEDS: Aspirin Enteric Coated 81 MG Tablet PO SCH (14:10)
[2021-05-30] MEDS: Apixaban 5 MG TABLET PO SCH (14:10)
[2021-05-30] MEDS: Piperacillin/Tazobactam 3.375 GM in 0.9 % Sodium Chloride Mini Bag 100 ML IVPB SCH ×2 (16:42→23:09)
[2021-05-31 02:31] LABS: Hematocrit 31.1 % (37.5-50.1); Mean Corpuscular HGB Conc 32.8 g/dL (31.6-35.5); Mean Corpuscular Hemoglobin 30.2 pg (28.0-33.3); Mean Platelet Volume 10.5 fL (9.4-12.4); Platelet Count 104 K/mcL (140-400); Red Blood Count 3.38 M/mcL (4.19-5.50); Red Cell Distribution Width 16.4 % (11.5-14.5)
[2021-05-31 02:45] LABS: BUN/Creatinine Ratio 29 (6-26); Blood Urea Nitrogen 17 mg/dL (8-23); Calcium 8.5 mg/dL (8.6-10.3); Carbon Dioxide 20 mEq/L (23-29); Chloride 106 mEq/L (98-107); Glucose 118 mg/dL (70-105); Magnesium 1.8 mg/dL (1.6-2.6); Osmolality,Calculated 281 (280-300); Potassium 4.1 mEq/L (3.5-5.1); Sodium 134 mEq/L (136-145); eGFR For African Americans > 60 (> 60); eGFR For Non-African Americans > 60 (> 60)
[2021-05-31 02:51] LABS: Hemoglobin 10.2 g/dL (12.9-16.9)
[2021-05-31 03:32] LABS: Lymphocytes # 1.3 K/mcL (0.6-4.6); Monocytes # 0.8 K/mcL (0.0-1.3); Neutrophils # 10.9 K/mcL (1.6-8.9); Platelet Estimate Slight Decrease (Normal)
[2021-05-31 03:33] LABS: Anisocytosis 1+ (Not Present)
[2021-05-31] MEDS: Insulin LISPRO 300 UNITS/3 ML VIAL SUBQ SCH ×3 (08:32→16:35)
[2021-05-31] MEDS: Piperacillin/Tazobactam 3.375 GM in 0.9 % Sodium Chloride Mini Bag 100 ML IVPB SCH ×2 (08:33→17:30)
[2021-05-31] MEDS: Apixaban 5 MG TABLET PO SCH ×2 (08:33→22:14)
[2021-05-31] MEDS: Aspirin Enteric Coated 81 MG Tablet PO SCH (08:34)
[2021-06-01] MEDS: Piperacillin/Tazobactam 3.375 GM in 0.9 % Sodium Chloride Mini Bag 100 ML IVPB SCH ×2 (00:10→08:22)
[2021-06-01] MEDS: Insulin LISPRO 300 UNITS/3 ML VIAL SUBQ SCH ×2 (08:06→11:42)
[2021-06-01 08:16] LABS: Hematocrit 38.3 % (37.5-50.1)
[2021-06-01] MEDS: Apixaban 5 MG TABLET PO SCH (08:21)
[2021-06-01] MEDS: Aspirin Enteric Coated 81 MG Tablet PO SCH (08:21)
[2021-06-01 08:24] LABS: Hemoglobin 12.3 g/dL (12.9-16.9)
[2021-06-01 11:22] VITALS: BP 116/74; PULSE 75; TEMP 98; O2SAT 90
== END 2021-06-01 12:16 | disposition home or self-care (01) | DRG 720 ==
LOC: EMEROOARM 00:24 → 3NENU 00:24 → SUATTDRO 04:41 → 3NENU 05:25 → 3ANU 05-31 22:54
PROVIDERS: ADMIT Student in an Organized Health Care Education/Training Program; ATTEND Internal Medicine